=== PATIENT | female | born 1965 | race American Indian/Alaskan Native ===

== ENCOUNTER 2017-04-24 18:14 | Inpatient (IN) | payer OTHER ==
[2017-04-24] MEDS ORDERED: ZOFRAN IV ONE (19:03)
[2017-04-24] MEDS ORDERED: BABY ASPIRIN PO ONE (19:03)
[2017-04-24] MEDS ORDERED: NITROSTAT SL ONE (19:03)
[2017-04-24] MEDS ORDERED: MORPHINE IV ONE (19:03)
--- NOTE | 2017-04-24 19:07 | Emergency Department Report ---
ED Chest Pain HPI - General Chief Complaint: Chest Pain Stated Complaint: CHEST PAIN Time Seen by Provider: 04/24/17 18:57 Source: patient Mode of arrival: Stretcher Limitations: No Limitations - History of Present Illness Initial Comments: Patient is 51 years old female history of high blood pressure came today with a chest pain, left-sided and substernal, radiated to her left upper extremity, pressure and tightness. Pain more so with exertion. Patient stated that she was seen at [facility] 2 days ago and she was discharged from the ER , no stress test was done. Patient stated that since then her pain is getting worse. MD Complaint: chest pain -: week(s) Pain Location: substernal, left chest Pain Radiation: LUE Severity scale (0 -10): 8 Quality: tightness, heaviness Improves With: rest Worsens With: exertion - Related Data Home Medications Medication Instructions Recorded Confirmed Last Taken No Known Home Medications [No 04/24/17 04/24/17 Unknown Reported Home Medications] Allergies Allergy/AdvReac Type Severity Reaction Status Date / Time No Known Allergies Allergy Unverified 09/28/15 11:17 Heart Score - HEART Score History: Moderately suspicious EKG: Non-specific Age: 45-65 Risk factors: 1-2 risk factors Troponin: < normal limit HEART Score: 4 - Critical Actions Critical Actions: 4-6 pts:12-16.6% risk of adverse cardiac event. Should be admitted ED Review of Systems ROS: Stated complaint: CHEST PAIN Other details as noted in HPI Comment: All other systems reviewed and negative Constitutional: denies: chills, fever Respiratory: denies: cough, orthopnea, shortness of breath, SOB with exertion Cardiovascular: chest pain. denies: palpitations, dyspnea on exertion, orthopnea, edema, syncope Gastrointestinal: denies: abdominal pain, nausea, vomiting, diarrhea, constipation, hematemesis, melena, hematochezia Neurological: denies: headache, weakness, numbness, paresthesias, confusion ED Past Medical Hx - Past Medical History Previous Medical History?: Yes Hx Hypertension: Yes - Surgical History Past Surgical History?: No - Social History Smoking Status: Never Smoker Substance Use Type: None - Medications Home Medications: Home Medications Medication Instructions Recorded Confirmed Last Taken Type No Known Home Medications [No 04/24/17 04/24/17 Unknown History Reported Home Medications] ED Physical Exam - General Limitations: No Limitations General appearance: alert, in no apparent distress - Head Head exam: Present: atraumatic, normocephalic, normal inspection - Eye Eye exam: Present: normal appearance, PERRL - ENT ENT exam: Present: normal exam, normal orophraynx - Neck Neck exam: Present: normal inspection, full ROM. Absent: tenderness, meningismus, lymphadenopathy, thyromegaly - Respiratory Respiratory exam: Present: normal lung sounds bilaterally. Absent: respiratory distress, wheezes, rales, rhonchi, chest wall tenderness, decreased breath sounds, prolonged expiratory - Cardiovascular Cardiovascular Exam: Present: regular rate, normal rhythm, normal heart sounds - GI/Abdominal GI/Abdominal exam: Present: soft, normal bowel sounds. Absent: distended, tenderness, guarding, rebound, rigid, mass, bruit, pulsatile mass, hernia - Extremities Exam Extremities exam: Present: normal inspection, full ROM, normal capillary refill - Back Exam Back exam: Present: normal inspection. Absent: CVA tenderness (R), CVA tenderness (L) - Neurological Exam Neurological exam: Present: alert, oriented X3, CN II-XII intact, normal gait - Skin Skin exam: Present: warm ED Course Vital Signs 04/24/17 04/24/17 04/24/17 18:47 18:57 19:27 Temperature 98.4 F 98.3 F Pulse Rate 80 74 77 Respiratory 16 16 Rate Blood Pressure 178/97 176/105 178/107 Blood Pressure [Left] O2 Sat by Pulse 100 97 Oximetry 04/24/17 19:40 Temperature Pulse Rate 74 Respiratory 16 Rate Blood Pressure Blood Pressure 138/89 [Left] O2 Sat by Pulse 96 Oximetry - Reevaluation(s) Reevaluation #1: 04/24/17 20:25 Patient is chest pain-free now she stated that she is feeling much better she is asking for something to eat. ED Medical Decision Making - Lab Data Result diagrams: 04/24/17 19:16 04/24/17 19:16 - EKG Data -: EKG Interpreted by Me EKG shows normal: sinus rhythm Rate: normal - EKG Data Interpretation: no acute changes - Radiology Data Radiology results: image reviewed interpreted by me: Chest x-ray was no acute finding. - Medical Decision Making Discussed with Dr. Lazara Malhotra I presented the patient to her, she accepted the patient to be admitted to the hospital. Critical care attestation.: If time is entered above; I have spent that time in minutes in the direct care of this critically ill patient, excluding procedure time. ED Disposition Clinical Impression: Chest pain Disposition: OP ADMIT IP TO THIS HOSP Is pt being admited?: Yes Condition: Stable Instructions: Chest Pain (ED) Referrals: PRIMARY CARE, [Primary Care Provider] - 3-5 Days
[2017-04-24 19:27] LABS: Bilirubin,Urine NEG (Negative); Blood,Urine MOD (Negative); Ketones,Urine NEG (Negative); Leukocyte Esterase,Urine NEG (Negative); Nitrite,Urine NEG (Negative); Protein,Urine <15 mg/dL mg/dL (Negative); Urobilinogen,Urine < 2.0 mg/dL (<2.0); WBC,Urine < 1.0 /HPF (0.0-6.0)
[2017-04-24 19:39] LABS: Hematocrit 41.1 % (30.3-42.9); Hemoglobin 13.3 gm/dl (10.1-14.3); Mean Corpuscular HGB Conc 32 % (30-34); Mean Corpuscular Hemoglobin 28 pg (28-32); Mean Corpuscular Volume 86 fl (79-97); Platelet Count 312 K/mm3 (140-440); Red Blood Count 4.81 M/mm3 (3.65-5.03); Red Cell Distribution Width 14.7 % (13.2-15.2); White Blood Count 14.8 K/mm3 (4.5-11.0)
[2017-04-24 19:50] LABS: Anion Gap 18 mmol/L; BUN/Creatinine Ratio 22; Blood Urea Nitrogen 11 mg/dL (7-17); Calcium 8.8 mg/dL (8.4-10.2); Carbon Dioxide 25 mmol/L (22-30); Chloride 102.7 mmol/L (98-107); Glucose 85 mg/dL (65-100); Potassium 3.7 mmol/L (3.6-5.0); Sodium 142 mmol/L (137-145)
[2017-04-24 20:26] LABS: Basophils % (Manual) 0 % (0.0-1.8); Blastocytes % (Manual) 0 %
[2017-04-24 20:27] LABS: Diff Status Complete; RBC Morphology Normal
[2017-04-24] MEDS ORDERED: TYLENOL PO ONE (21:45)
[2017-04-24] MEDS ORDERED: APRESOLINE IV PRN (22:44)
[2017-04-24] MEDS ORDERED: MORPHINE IV PRN (22:45)
[2017-04-24] MEDS ORDERED: MILK OF MAGNESIA PO PRN (22:45)
[2017-04-24] MEDS ORDERED: ZOFRAN IV PRN (22:45)
[2017-04-24] MEDS ORDERED: TYLENOL PO PRN (22:45)
[2017-04-24] MEDS ORDERED: DULCOLAX PR PRN (22:45)
--- NOTE | 2017-04-24 22:49 | History and Physical Report ---
History of Present Illness Date of examination: 04/24/17 History of present illness: 51 -year-old woman with a history of hypertension but has been off medication because her blood pressure normalized closely emergency room today with complaints of chest pain that has been ongoing for the last 1 week. She describes as a sharp, intermittent in nature lasting 5 minutes, intensity, with 10, radiating to the left arm. Pain was relieved with nitroglycerin, can't identify exacerbating symptoms. Denies nausea vomiting, shortness breath, diaphoresis or palpitation. Never had a stress test Review Of Systems: Constitutional: no weight loss Ears, eyes, nose, mouth and throat: no nasal congestion, no nasal discharge, no sinus pressure, blurry vision, diplopia Neck: No neck pain or rigidity. Cardiovascular: no orthopnea, palpitations Respiratory: No shortness of breath, cough Gastrointestinal: no abdominal pain, hematochezia Genitourinary : no dysuria, frequency , hematuria Musculoskeletal: no muscle ache Integumentary: no rash, no pruritis Neurological: no parathesias, focal weakness Endocrine: no cold or heat intolerance, no polyuria or polydipsia Hematologic/Lymphatic: no easy bruising, no easy bleeding, no gland swelling Allergic/Immunologic: no urticaria, no angioedema. PAST MEDICAL HISTORY:hypertension PAST SURGICAL HISTORY:none FAMILY HISTORY:hypertension SOCIAL HISTORY: Smoked 1 pack a day, no alcohol or drugs Medications and Allergies Allergies Allergy/AdvReac Type Severity Reaction Status Date / Time No Known Allergies Allergy Unverified 09/28/15 11:17 Home Medications Medication Instructions Recorded Confirmed Last Taken Type No Known Home Medications [No 04/24/17 04/24/17 Unknown History Reported Home Medications] Active Meds: Active Medications Hydralazine HCl (Apresoline) 5 mg IV Q6HR PRN PRN Reason: Hypertension Exam - Physical Exam Narrative exam: Gen. appearance: Patient lying in bed in no acute distress HEENT: Normocephalic/atraumatic, pupils equal round reactive to light, extra alkaline movement intact, no scleral icterus, no JVD or thyromegaly or nodule, neck is supple, mucous membrane moist, no erythema or exudate Heart: S1-S2, regular rate and rhythm Lungs: Clear to auscultation bilateral breathing comfortable Abdomen: Positive bowel sounds, nontender, nondistended, no organomegaly Extremities: No edema, cyanosis, clubbing Neuro:: Oriented 3 , cranial nerves II-12 intact, speech, motor intact Skin: No rash, nodules, warm dry - Constitutional Vitals: Temp Pulse Resp BP Pulse Ox 98.3 F 71 16 132/81 100 04/24/17 18:57 04/24/17 22:32 04/24/17 22:32 04/24/17 22:32 04/24/17 22:32 Results - Labs CBC & Chem 7: 04/24/17 19:16 04/24/17 19:16 Labs: Abnormal lab results 04/24/17 04/24/17 Range/Units 19:16 19:16 WBC 14.8 H (4.5-11.0) K/mm3 Monocytes % (Manual) 9.0 H (0.0-7.3) % Seg Neutrophils # Man 8.6 H (1.8-7.7) K/mm3 Monocytes # (Manual) 1.3 H (0.0-0.8) K/mm3 Creatinine 0.5 L (0.7-1.2) mg/dL - Imaging and Cardiology EKG: image reviewed Chest x-ray: image reviewed Assessment and Plan Assessment Hypertensive urgency malignant Chest pain most likely secondary to #1 Stress-induced leukocytosis Plan Admit to medicine Start IV hydralazine as needed for blood pressure control Check cardiac enzymes, stress test Start aspirin, IV morphine, DVT prophylaxis
[2017-04-25 05:50] LABS: Hematocrit 39.2 % (30.3-42.9); Hemoglobin 12.9 gm/dl (10.1-14.3); Mean Corpuscular HGB Conc 33 % (30-34); Mean Corpuscular Hemoglobin 28 pg (28-32); Mean Corpuscular Volume 86 fl (79-97); Platelet Count 283 K/mm3 (140-440); Red Blood Count 4.54 M/mm3 (3.65-5.03); Red Cell Distribution Width 14.6 % (13.2-15.2); White Blood Count 12.9 K/mm3 (4.5-11.0)
[2017-04-25 06:08] LABS: Anion Gap 15 mmol/L; BUN/Creatinine Ratio 21; Blood Urea Nitrogen 15 mg/dL (7-17); Calcium 8.5 mg/dL (8.4-10.2); Carbon Dioxide 27 mmol/L (22-30); Chloride 102.1 mmol/L (98-107); Glucose 93 mg/dL (65-100); Potassium 3.4 mmol/L (3.6-5.0); Sodium 141 mmol/L (137-145)
[2017-04-25 06:11] LABS: Creatine Kinase MB 1.9 ng/mL (0.0-4.0)
[2017-04-25 06:14] LABS: Creatine Kinase 78 units/L (30-135)
[2017-04-25 06:43] LABS: Blastocytes % (Manual) 0 %
[2017-04-25 06:44] LABS: Anisocytosis 1+; Diff Status Complete; Platelet Estimate Consistent w Auto
[2017-04-25] MEDS ORDERED: LEXISCAN IV ONE (08:13)
--- NOTE | 2017-04-25 08:26 | XRay Report ---
PORTABLE CHEST: Chest pain. An AP portable view of the chest demonstrates a normal cardiac contour considering the limits of this technique. The lungs are clear with no evidence of infiltrate, fluid or failure. IMPRESSION: Normal portable chest.
--- NOTE | 2017-04-25 09:52 | Event Note ---
Date: 04/25/17 lexiscan stress: lv ef 54%. no evidence of myocardial ischemia or necrosis
[2017-04-25] MEDS ORDERED: LOVENOX SUB-Q SCH ×2 (10:00)
--- NOTE | 2017-04-25 10:11 | Treadmill Report ---
NUCLEAR CARDIAC IMAGING INDICATION FOR PROCEDURE: Chest pain. Informed consent was obtained. Vasodilator stress was performed with intravenous Lexiscan 0.4 mg per protocol. Rest and stress nuclear cardiac imaging were performed per protocol with 10 mCi of technetium 99m Myoview and 28 mCi of technetium-99m Myoview for the rest and stress acquisitions respectively. Gated SPECT imaging demonstrates a post-stress left ventricular ejection fraction of 54% with normal wall motion. Myocardial perfusion imaging demonstrates no significant cavity change between stress and rest. No significant stress-induced perfusion defects are seen. Nuclear cardiac imaging demonstrates grossly normal post-stress left ventricular systolic function with no significant evidence for myocardial ischemia or necrosis. JOB# [id number] DESIREE/ILDA
[2017-04-25] MEDS ORDERED: K-DUR PO ONE (10:12)
[2017-04-25 11:07] VITALS: BP 140/78
--- NOTE | 2017-04-25 11:48 | Discharge Summary ---
Providers - Providers Date of Admission: 04/24/17 22:45 Date of discharge: 04/25/17 Attending physician: MIKEL MORALES Primary care physician: ADITI CLARK MD Hospitalization Condition: Fair Disposition: DC-01 TO HOME OR SELFCARE Core Measure Documentation - Palliative Care Palliative Care/ Comfort Measures: Not Applicable - Core Measures Any of the following diagnoses?: none Exam - Constitutional Vitals: Temp Pulse Resp BP Pulse Ox 97.9 F 76 16 140/78 95 04/25/17 04:16 04/25/17 08:27 04/25/17 10:41 04/25/17 08:27 04/25/17 04:16 Plan Activity: no restrictions Diet: low fat, low cholesterol, low salt Additional Instructions: 1.Follow up with PCP or [facility] in 1 week Follow up with: PRIMARY CARE, [Primary Care Provider] - 3-5 Days Prescriptions: amLODIPine [Norvasc] 5 mg PO DAILY #30 tab Famotidine [Pepcid] 20 mg PO BID #30 tablet
[2017-04-26] MEDS ORDERED: NACL 0.9% 1000 ML 1,000 ML ONE (01:37)
== END 2017-04-25 13:21 | disposition home or self-care (01) | DRG 305 ==
LOC: ED 18:14 → 4A 22:45
PROVIDERS: ADMIT Internal Medicine; ATTEND Internal Medicine
DX: I16.0 Hypertensive urgency (principal); I10 Essential (primary) hypertension; Z82.49 Family history of ischemic heart disease and other diseases of the circulatory system; F17.200 Nicotine dependence, unspecified, uncomplicated; D72.828 Other elevated white blood cell count
CPT/HCPCS: 36415; 71010; 78452; 80048; 81001; 82550; 82553; 84484; 85007; 85025; 87086; 93005; 93010; 93017; 96374; 96375; 96376; 99285; A9502; J0153; J2270; J2405; J2785; J7030

== ENCOUNTER 2017-05-20 18:52 | Emergency (ER) | payer SELFPAY ==
[2017-05-20 19:11] VITALS: BP 159/90
== END 2017-05-20 19:55 | disposition left against medical advice (07) ==
LOC: ED 18:52
DX: R07.9 Chest pain, unspecified (principal); Z53.21 Procedure and treatment not carried out due to patient leaving prior to being seen by health care provider
CPT/HCPCS: 93005; 93010

== ENCOUNTER 2018-09-23 11:34 | Emergency (ER) | payer BC ==
[2018-09-23] MEDS ORDERED: PROVENTIL IH ONE (11:44)
[2018-09-23] MEDS ORDERED: DECADRON IM ONE (11:44)
[2018-09-23] MEDS ORDERED: ATROVENT IH ONE (11:44)
--- NOTE | 2018-09-23 11:44 | Emergency Department Report ---
Blank Doc - Documentation Documentation: This is a 53-year-old female that presents with URI symptoms. Stated has chest pain only during cough. Exam: Wheezing and decreased breath sounds. This initial assessment/diagnostic orders/clinical plan/treatment(s) is/are subject to change based on patient's health status, clinical progression and re- assessment by fellow clinical providers in the ED. Further treatment and workup at subsequent clinical providers discretion. Patient/guardians urged not to elope from the ED as their condition may be serious if not clinically assessed and managed. Initial orders include: 1- Patient sent to [facility] for further evaluation and treatment 2- CXR 3- breathing treatment/steroids
--- NOTE | 2018-09-23 12:08 | Emergency Department Report ---
- General Chief Complaint: Chest Pain Stated Complaint: CHEST PAIN/SOB Time Seen by Provider: 09/23/18 11:38 Source: patient Mode of arrival: Ambulatory Limitations: No Limitations - History of Present Illness Initial Comments: This is a 53-year-old female with a history of asthma who presents to ED complaining of left-sided upper chest pain meds worsening with coughing. Patient states she is also having some shortness of breath that started this morning after a short intermittent coughing episode. Patient states that she is have similar symptoms before in the past. Patient states she does not take medication at home for asthma. She denies fever/headache/blurred vision/dizziness, trauma, MD Complaint: cough - Related Data Previous Rx's Medication Instructions Recorded Last Taken Type Famotidine [Pepcid] 20 mg PO BID #30 tablet 04/25/17 Unknown Rx amLODIPine [Norvasc] 5 mg PO DAILY #30 tab 04/25/17 Unknown Rx ALBUTEROL Inhaler(NF) [VENTOLIN 1 - 2 puff IH PRN #1 inha 09/23/18 Unknown Rx Inhaler(NF)] Benzonatate [Tessalon Perles] 100 mg PO Q8HR #20 capsule 09/23/18 Unknown Rx Cyclobenzaprine [Flexeril] 10 mg PO QHS PRN #20 tablet 09/23/18 Unknown Rx Allergies Allergy/AdvReac Type Severity Reaction Status Date / Time No Known Allergies Allergy Unverified 09/28/15 11:17 ED Review of Systems ROS: Stated complaint: CHEST PAIN/SOB Other details as noted in HPI Comment: All other systems reviewed and negative ED Past Medical Hx - Past Medical History Previous Medical History?: Yes Hx Hypertension: Yes - Social History Smoking Status: Current Every Day Smoker Substance Use Type: None - Medications Home Medications: Home Medications Medication Instructions Recorded Confirmed Last Taken Type Famotidine [Pepcid] 20 mg PO BID #30 tablet 04/25/17 Unknown Rx amLODIPine [Norvasc] 5 mg PO DAILY #30 tab 04/25/17 Unknown Rx ALBUTEROL Inhaler(NF) [VENTOLIN 1 - 2 puff IH PRN #1 inha 09/23/18 Unknown Rx Inhaler(NF)] Benzonatate [Tessalon Perles] 100 mg PO Q8HR #20 capsule 09/23/18 Unknown Rx Cyclobenzaprine [Flexeril] 10 mg PO QHS PRN #20 tablet 09/23/18 Unknown Rx ED Physical Exam - General Limitations: No Limitations General appearance: alert, in no apparent distress - Head Head exam: Present: atraumatic, normocephalic - Eye Eye exam: Present: normal appearance - ENT ENT exam: Present: mucous membranes moist - Neck Neck exam: Present: normal inspection - Respiratory Respiratory exam: Present: normal lung sounds bilaterally, wheezes, chest wall tenderness. Absent: respiratory distress, rales, rhonchi, accessory muscle use - Cardiovascular Cardiovascular Exam: Present: regular rate, normal rhythm. Absent: systolic murmur, diastolic murmur, rubs, gallop - GI/Abdominal GI/Abdominal exam: Present: soft, normal bowel sounds. Absent: distended, tenderness, guarding - Extremities Exam Extremities exam: Present: normal inspection - Back Exam Back exam: Present: normal inspection - Neurological Exam Neurological exam: Present: alert, oriented X3, normal gait - Psychiatric Psychiatric exam: Present: normal affect, normal mood - Skin Skin exam: Present: warm, dry, intact, normal color. Absent: rash ED Course Vital Signs 09/23/18 09/23/18 09/23/18 11:38 12:27 12:28 Temperature 98.5 F Pulse Rate 110 H Pulse Rate [ 89 Bilateral] Respiratory 18 18 Rate Respiratory 22 Rate [Bilateral ] Blood Pressure 124/75 O2 Sat by Pulse 92 97 Oximetry - Reevaluation(s) Reevaluation #1: No wheezing heard bilaterally Patient reports feeling much better after administration of steroids and breathing treatment. Patient is in no acute or respiratory distress. 09/23/18 13:04 ED Medical Decision Making - Radiology Data Radiology results: report reviewed, image reviewed HISTORY: Short of breath wheezing. The trachea, heart, mediastinal contour, lung marcos and bony thorax are unremarkable. IMPRESSION: Unremarkable chest x-ray. Transcribed By: TTR Dictated By: PURA HAMMONDS JR, MD Electronically Authenticated By: PURA HAMMONDS JR, MD Signed Date/Time: 09/23/18 [id number] - Medical Decision Making This 53-year-old female presents with bronchitis Breathing treatment and prednisone given in ED. Chest x-ray ordered, labs ordered. Chest extra shows no acute findings Discussed all findings with the patient. Patient states the fluid was better after administration. Pedis signs are normal she is in no acute distress or respiratory distress. Discuss home medication and to follow-up with the primary care physician. Critical care attestation.: If time is entered above; I have spent that time in minutes in the direct care of this critically ill patient, excluding procedure time. ED Disposition Clinical Impression: Bronchitis Disposition: DC-01 TO HOME OR SELFCARE Is pt being admited?: No Does the pt Need Aspirin: No Condition: Stable Instructions: Chronic Bronchitis (ED), Asthma (ED) Additional Instructions: Make sure to follow up with the primary care physician as discussed. Take all your medications as you've been prescribed. If you have any worsening symptoms or develop new symptoms please return to ED immediately. Prescriptions: Cyclobenzaprine [Flexeril] 10 mg PO QHS PRN #20 tablet PRN Reason: Muscle Spasm Benzonatate [Tessalon Perles] 100 mg PO Q8HR #20 capsule ALBUTEROL Inhaler(NF) [VENTOLIN Inhaler(NF)] 1 - 2 puff IH PRN #1 inha Referrals: PRADIP LOPESACWORTH MD PLAICDO [Primary Care Provider] - 3-5 Days Forms: Work/School Release Form(ED), Accompanied Note Time of Disposition: 13:07
--- NOTE | 2018-09-23 12:10 | XRay Report ---
ROUTINE CHEST, TWO VIEWS: HISTORY: Short of breath wheezing. The trachea, heart, mediastinal contour, lung marcos and bony thorax are unremarkable. IMPRESSION: Unremarkable chest x-ray.
[2018-09-23 13:39] VITALS: BP 98/66
== END 2018-09-23 13:35 | disposition home or self-care (01) ==
LOC: ED 11:34
DX: J40 Bronchitis, not specified as acute or chronic (principal); I10 Essential (primary) hypertension; F17.200 Nicotine dependence, unspecified, uncomplicated; Z79.899 Other long term (current) drug therapy
CPT/HCPCS: 71046; 93005; 93010; 94640; 96372; 99283; J1100